=== PATIENT | male | born 1995 | race Two or more races ===

== ENCOUNTER 2019-01-03 17:29 | Emergency (ER) | payer SELFPAY ==
[2019-01-03] MEDS ORDERED: Ibuprofen 800 MG Tab PO ONE (18:08)
--- NOTE | 2019-01-03 18:36 | EDM.PDOC ---
ED HPI GENERAL MEDICAL PROBLEM - General Chief Complaint: Lower Extremity Injury/Pain Stated Complaint: HURT R KNEE Time Seen by Provider: 01/03/19 18:06 Source of Information: Reports: Patient History Limitations: Reports: No Limitations - History of Present Illness INITIAL COMMENTS - FREE TEXT/NARRATIVE: History of present illness: []Patient was playing basketball today when he went in for a jump and when he landed he felt his knee "slide and then pop" he was able to go home but was unable to walk up stairs into his house. Review of systems: As per history of present illness and below otherwise all systems reviewed and negative. Past medical history: As per history of present illness and as reviewed below otherwise noncontributory. Surgical history: As per history of present illness and as reviewed below otherwise noncontributory. Social history: No reported history of drug or alcohol abuse. Family history: As per history of present illness and as reviewed below otherwise noncontributory. Physical exam: General: Well developed, well nourished in NAD HEENT: Atraumatic, normocephalic, pupils reactive, negative for conjunctival pallor or scleral icterus, mucous membranes moist, throat clear, neck supple, nontender, trachea midline. Lungs: Clear to auscultation, breath sounds equal bilaterally, chest nontender. Heart: S1S2, regular, negative for clicks, rubs, or JVD. Abdomen: NABS, Soft, nondistended, nontender. Negative for masses or hepatosplenomegaly. Negative for costovertebral tenderness. Pelvis: Stable nontender. Genitourinary: Deferred. Rectal: Deferred. Extremities: Atraumatic, no palpable effusion, positive diffuse tenderness stable on exam, negative for cords or calf pain. Neurovascular unremarkable. Neuro: Awake, alert, oriented. Cranial nerves II through XII unremarkable. Cerebellum unremarkable. Motor and sensory unremarkable throughout. Exam nonfocal. Skin:warm and dry Diagnostics: X-ray right knee no fracture or dislocation Therapeutics: Ibuprofen, knee immobilizer ED Course: Stable Impression: Internal derangement of right knee Prescriptions: None Plan: Ice, ibuprofen or Tylenol, elevation and wear immobilizer for stability follow- up with orthopedic. Definitive disposition and diagnosis as appropriate pending reevaluation and review of above. Right Knee Pain Score (Numeric/FACES): 8 - Related Data Allergies Allergy/AdvReac Type Severity Reaction Status Date / Time No Known Allergies Allergy Verified 01/03/19 17:53 Home Meds: Home Meds . [No Known Home Meds] 01/03/19 [History] Past Medical History - Past Surgical History Musculoskeletal Surgical History: Reports: Other (See Below) Other Musculoskeletal Surgeries/Procedures:: knee repair Social & Family History - Family History Family Medical History: Noncontributory - Tobacco Use Smoking Status *Q: Light Tobacco Smoker Years of Tobacco use: 4 Packs/Tins Daily: 0.1 - Recreational Drug Use Recreational Drug Use: No Review of Systems - Review of Systems Review Of Systems: ROS reveals no pertinent complaints other than HPI. ED EXAM, GENERAL - Physical Exam Exam: See Below (See history of present illness) Course - Vital Signs Last Recorded V/S: Last Vital Signs Temp 97.8 F 01/03/19 17:51 Pulse 75 01/03/19 17:51 Resp 18 01/03/19 17:51 BP 125/75 01/03/19 17:51 Pulse Ox 97 01/03/19 17:51 - Orders/Labs/Meds Orders: Active Orders 24 hr Category Date Time Status Splinting [RC] ASDIRECTED Care 01/03/19 18:35 Active Knee 3V Rt [CR] Stat Exams 01/03/19 17:53 Taken Meds: Medications Discontinued Medications Generic Name Dose Route Start Last Admin Trade Name Robeq PRN Reason Stop Dose Admin Ibuprofen 800 mg 01/03/19 18:08 Motrin PO 01/03/19 18:09 ONETIME ONE Departure - Departure Time of Disposition: 18:46 Disposition: Home, Self-Care 01 Condition: Good Clinical Impression: Internal derangement of right knee - Discharge Information *PRESCRIPTION DRUG MONITORING PROGRAM REVIEWED*: No *COPY OF PRESCRIPTION DRUG MONITORING REPORT IN PATIENT DELORIS: No Referrals: PCP,Not In Area [Primary Care Provider] - Forms: ED Department Discharge Additional Instructions: The following information is given to patients seen in the emergency department who are being discharged to home. This information is to outline your options for follow-up care. We provide all patients seen in our emergency department with a follow-up referral. The need for follow-up, as well as the timing and circumstances, are variable depending upon the specifics of your emergency department visit. If you don't have a primary care physician on staff, we will provide you with a referral. We always advise you to contact your personal physician following an emergency department visit to inform them of the circumstance of the visit and for follow-up with them and/or the need for any referrals to a consulting specialist. The emergency department will also refer you to a specialist when appropriate. This referral assures that you have the opportunity for follow-up care with a specialist. All of these measure are taken in an effort to provide you with optimal care, which includes your follow-up. Under all circumstances we always encourage you to contact your private physician who remains a resource for coordinating your care. When calling for follow-up care, please make the office aware that this follow-up is from your recent emergency room visit. If for any reason you are refused follow-up, please contact the [facility] Emergency Department at and asked to speak to the emergency department charge nurse. [facility] [address], [address] [place] [address] - My Orders Last 24 Hours: My Active Orders 01/03/19 18:35 Splinting [RC] ASDIRECTED - Assessment/Plan Last 24 Hours: My Active Orders 01/03/19 18:35 Splinting [RC] ASDIRECTED
--- NOTE | 2019-01-03 18:45 | CR ---
INDICATION: Knee pain TECHNIQUE: Knee radiograph 3 views right COMPARISON: None FINDINGS: Bone: No acute fractures or aggressive bone lesions are identified. Fibro-osseous tunnels from previous ACL reconstruction noted with a metallic suture button seen along the lateral femoral condyle. Joint: The joint spaces of the medial, lateral, and patellofemoral compartments are unremarkable. No significant knee effusion is seen. Soft tissue: Unremarkable. No radiopaque foreign bodies are seen. IMPRESSION: 1. No acute osseous injuries or abnormalities are noted. Dictated by Jeremy Joel MD @ 01/03/2019 6:43:33 PM Dictated by: Jeremy Joel MD @ 01/03/2019 18:43:40 (Electronically Signed)
== END 2019-01-03 19:01 | disposition home or self-care (01) ==
LOC: MW.ED 17:29
DX: S89.91XA Unspecified injury of right lower leg, initial encounter (principal); F17.210 Nicotine dependence, cigarettes, uncomplicated; X58.XXXA Exposure to other specified factors, initial encounter; Y93.67 Activity, basketball
CPT/HCPCS: 73562; 99283; A9270